=== PATIENT | male | born 1965 | race African-American/Black ===

== ENCOUNTER → 2016-11-25 | Outpatient (CLI) | payer OTHER | LOC: SLEEPLAB 10:50 | DX: G47.33 Obstructive sleep apnea (adult) (pediatric) (principal) ==

== ENCOUNTER 2017-12-27 09:42 | Emergency (ER) | payer OTHER ==
[~2017-12-27] VITALS: Ht 170.2 cm; Wt 108.9 kg
--- NOTE | ~2017-12-27 | EKG ---
[address] [address] [place] [address] ELECTROCARDIOGRAM REPORT Name: MAGALY HENSLEY [facility] [id number] Admission: 12/27/17 Attend Phys: Discharge: 12/27/17 Date of : 63 Report #: [id number] THIS REPORT FOR: //name// [facility] ED Test Date: 2017-12-27 Test Time: 10:30:25 Pat Name: MAGALY HENSLEY Department: Room: Gender: Safety Administrator: : 1965 Requested By: Jess Escalante Order Number: [id number] MD: Alok Palafox Measurements Intervals [place] Rate: 54 P: 32 ND: 156 QRS: 24 QRSD: 100 T: 15 QT: 446 QTc: 423 Interpretive Statements Sinus bradycardia Otherwise normal tracing Compared to ECG 03/23/2007 10:52:08 No significant change was found Electronically Signed On 12-28-2017 8:18:34 CDT by Alok Palafox [email or web address] <ELECTRONICALLY SIGNED> By: Alok Palafox MD, [facility] 12/28/17 0818 1030 1030 Alok Palafox MD, FACC /EPI
[2017-12-27 10:49] LABS: ABSOLUTE NEUTROPHILS 2.6 thou/uL (1.4-8.2); BASOPHILS 1.3 % (0.0-2.0); EOSINOPHILS 2.4 % (0.0-3.0); HEMATOCRIT 43.8 % (42.0-52.0); HEMOGLOBIN 15.2 gm/dL (14.0-18.0); LYMPHOCYTES 36.5 % (24.0-44.0); MCHC 34.7 g/dL (28.0-37.0); MCV 92.2 fL (80.0-100.0); MONOCYTES 8.3 % (1.0-8.0); PLATELET COUNT 208 thou/uL (150-400); POLYS 51.5 % (36.0-66.0); RBC 4.75 mil/uL (4.50-6.00); RDW 12.8 % (10.5-14.5)
[2017-12-27 10:57] LABS: ANION GAP 5 mmol/L (7-16); BUN 18 mg/dL (7-18); CHLORIDE 106 mmol/L (98-107); CO2 27 mmol/L (21-32); CREATININE 1.3 mg/dL (0.7-1.3); GLUCOSE 107 mg/dL (74-106); POTASSIUM 4.2 mmol/L (3.5-5.1); SODIUM 138 mmol/L (136-145)
[2017-12-27 11:06] LABS: ALBUMIN 3.8 g/dL (3.4-5.0); DIRECT BILIRUBIN 0.1 mg/dL (<0.1-0.3); LIPASE 119 U/L (73-393); SGOT 27 U/L (15-37); SGPT 42 U/L (30-65); TOTAL BILIRUBIN 0.5 mg/dL (<0.1-1.0); TOTAL PROTEIN 7.5 g/dL (6.4-8.2); TROPONIN-I <0.06 ng/mL (<0.06)
[2017-12-27 11:45] LABS: URINE BILIRUBIN NEGATIVE (Negative); URINE BLOOD NEGATIVE (Negative); URINE CLARITY CLEAR; URINE COLOR YELLOW; URINE GLUCOSE-RANDOM* NEGATIVE (Negative); URINE KETONES NEGATIVE (Negative); URINE LEUKOCYTES-REFLEX NEGATIVE (Negative); URINE NITRITE-REFLEX NEGATIVE (Negative); URINE PROTEIN (DIPSTICK) NEGATIVE (Negative); URINE UROBILINOGEN 0.2 E.U./dl (0.2-1.0)
[2017-12-27 12:36] VITALS: BP 121/68
== END 2017-12-27 12:37 | disposition home or self-care (01) ==
LOC: ER 09:42
PROVIDERS: Student in an Organized Health Care Education/Training Program
DX: R10.31 Right lower quadrant pain (principal); R10.32 Left lower quadrant pain; R19.7 Diarrhea, unspecified; M54.5 Low back pain

== ENCOUNTER → 2018-12-30 | Outpatient (CLI) | payer OTHER | LOC: CAT 08:02 | DX: Z13.6 Encounter for screening for cardiovascular disorders (principal); I25.10 Atherosclerotic heart disease of native coronary artery without angina pectoris; E78.00 Pure hypercholesterolemia, unspecified ==